=== PATIENT | female | born 1990 | race Two or more races ===

== ENCOUNTER 2024-08-31 03:43 | Emergency (ER) | payer OTHER ==
[~2024-08-31] VITALS: Ht 170.2 cm; Wt 33.6 kg
[2024-08-31 05:04] LABS: COVID AG,FIA SOURCE NASAL SWAB
[2024-08-31 05:39] LABS: INFLUENZA TYPE A NEGATIVE FOR TYPE A (NEGATIVE); INFLUENZA TYPE B NEGATIVE FOR TYPE B (NEGATIVE)
[2024-08-31 05:43] LABS: SARS-COV2 (COVID) ANTIGEN,FIA Negative (Negative)
[2024-08-31 05:49] VITALS: BP 112/58; PULSE 75; RESP 18; TEMP 97.9; O2SAT 98
[2024-08-31] MEDS ORDERED: AZIT250T9 PO (05:51)
== END 2024-08-31 06:05 | disposition home or self-care (01) ==
LOC: EMS 03:43
DX: J03.90 Acute tonsillitis, unspecified (principal); Z20.822 Contact with and (suspected) exposure to COVID-19
CPT/HCPCS: 87430; 87804; 99283